=== PATIENT | male | born 1970 | race African-American/Black ===

== ENCOUNTER 2022-11-27 17:38 | Emergency (ER) | payer MEDICAID ==
[~2022-11-27] VITALS: Ht 170.2 cm; Wt 73.0 kg
[2022-11-27 17:48] VITALS: BP 137/77
[2022-11-27] MEDS ORDERED: TETRACAINE 0.5% OPHTH DROPS 4ML LEFTEYE STA (23:32)
[2022-11-27] MEDS ORDERED: FLUORESCEIN SODIUM 1MG/STRIP LEFTEYE STA (23:40)
[2022-11-28] MEDS ORDERED: IBUP-2028 MT (00:21)
[2022-11-28] MEDS ORDERED: MOXI3DRO12 LEFTEYE (00:21)
== END 2022-11-28 00:33 | disposition home or self-care (01) ==
LOC: ER 17:38
DX: T15.02XA Foreign body in cornea, left eye, initial encounter (principal); X58.XXXA Exposure to other specified factors, initial encounter; Y93.89 Activity, other specified; Y92.89 Other specified places as the place of occurrence of the external cause; Y99.8 Other external cause status
CPT/HCPCS: 99283; Z7610